=== PATIENT | female | born 1930 | race Caucasian/White ===

== ENCOUNTER 2016-12-28 08:59 | Emergency (ER) | payer BC, MEDICARE, OTHER ==
[~2016-12-28] VITALS: Ht 170.2 cm; Wt 59.1 kg
[~2016-12-28 08:59] MED LIST: Z.0.NO CURRENT MEDS
[2016-12-28 09:01] VITALS: BP 161/75; PULSE 68; RESP 16; TEMP 97.5; O2SAT 98
[2016-12-28] MEDS ORDERED: TETANUS/DIPHTHERIA TOXOID ADULT 0.5 ML VIAL IM ONE (09:30)
[2016-12-28] MEDS ORDERED: BACI500O9 TOPICAL (09:37)
--- NOTE | 2016-12-28 09:37 | PD ---
HPI Chief Complaint: Fall Time Seen by Provider: 09:22 Travel History International Travel<30 days: No Contact w/Intl Traveler<30days: No Traveled to known affect area: No History of Present Illness HPI 86-year-old female came to the emergency room with history of slip and fall. 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 She landed on her hand and also bruised her upper lip. No loss of consciousness. On her right palm and right knee the skin is scraped and bleeding. Patient is not on any blood thinners. This happened 5- 10 minutes prior to coming to the ER. Patient is awake and answering questions appropriately. She was brought in on a wheelchair. Says she is little shook up and unsteady but otherwise feeling okay. Patient has stable vital signs. Patient does not recall her last tetanus shot. However, she does not think it was in past 5 years. [facility] Past Medical History Narrative Medical List of her past medical history is reviewed from the nursing note. ?: Not Social History Tobacco Use: No Allergies-Medications (Allergen,Severity, Reaction): Coded Allergies: Penicillin (Verified Allergy, Severe, Anaphylaxis, 12/28/16) Comments List of her allergies reviewed from the nursing note. Reported Meds & Prescriptions Reported Meds & Active Scripts Active Bacitracin Topical 500 Unit/Gm Oint 1 Applic TOPICAL BID 7 Days Narrative Medication List of her home medications reviewed from the nursing note. Review of Systems Except as stated in HPI: all other systems reviewed are Neg Physical Exam Narrative GENERAL: Awake, alert, elderly, mild distress SKIN: Warm and dry. Superficial skin tear/abrasion of her right palm thenar aspect which is oozing blood, right knee skin tear. The bleeding has stopped. Left knee bruising HEAD: Atraumatic. Normocephalic. EYES: Pupils equal and round. No scleral icterus. No injection or drainage. ENT: No nasal bleeding or discharge. Mucous membranes pink and moist. Upper lip on the right side there is mucosal abrasion with some hematoma and swelling. No active bleeding. Denture underneath is intact NECK: Trachea midline. No JVD. CARDIOVASCULAR: Regular rate and rhythm. No murmur appreciated. RESPIRATORY: No accessory muscle use. Clear to auscultation. Breath sounds equal bilaterally. GASTROINTESTINAL: Abdomen soft, non-tender, nondistended. Hepatic and splenic margins not palpable. MUSCULOSKELETAL: No obvious deformities. No clubbing. No cyanosis. No edema. NEUROLOGICAL: Awake and alert. No obvious cranial nerve deficits. Motor grossly within normal limits. Normal speech. PSYCHIATRIC: Appropriate mood and affect; insight and judgment normal. Data Data Last Documented VS Vital Signs Date Time Temp Pulse Resp B/P Pulse Ox O2 Delivery O2 Flow Rate FiO2 12/28/16 09:01 97.5 68 16 161/75 98 Orders Tetanus/Diphtheria Tox Adult (Tetanus/Di (12/28/16 09:30) Wound Care (12/28/16 09:23) Acetaminophen (Tylenol) (12/28/16 09:45) MDM Medical Decision Making Medical Screen Exam Complete: Yes Emergency Medical Condition: Yes Medical Record Reviewed: Yes Differential Diagnosis Fall, abrasions, contusions Narrative Course 9:34 AM patient will get a tetanus shot. The wound will be cleaned and wrapped with non-adhesive dressing and triple antibiotic ointment. There is full range of motion at all the joints. She is awake, alert. I will not do any imaging study at this point. She will made to the ambulated before I will discharge her. Procedures EKG Prior to Arrival: No Diagnosis Primary Impression: Slipping, tripping and stumbling without falling due to stepping from one level to another, initial encounter Additional Impressions: Abrasion hand Skin tear of right lower leg without complication Qualified Code: S81.811A - Skin tear of right lower leg without complication, initial encounter Contusion of lip, initial encounter Referrals: Primary Care Physician 2 days Additional Instructions: Please return to the ER if the condition worsens or any other new concerns. Take Tylenol for pain. Expect the pain to worsen as the day progresses as well as tomorrow. Warm shower or bath along with Tylenol should help. Follow-up with your primary care. Dressing change every day with the antibiotic ointment. Med/Other Pt SpecificInfo: Prescription(s) given Scripts Bacitracin Topical 500 Unit/Gm Oint1 Applic TOPICAL BID 7 Days Ref 0 Prov:Natali Jackson MD 12/28/16 Disposition: 01 DISCHARGE HOME Condition: Stable Natali Jackson MD Dec 28, 2016 09:37
[2016-12-28] MEDS ORDERED: ACETAMINOPHEN 325 MG TAB PO ONE (09:45)
== END 2016-12-28 10:46 | disposition home or self-care (01) ==
LOC: NEPE 08:59
DX: S60.511A Abrasion of right hand, initial encounter (principal); S81.811A Laceration without foreign body, right lower leg, initial encounter; S00.531A Contusion of lip, initial encounter; W01.0XXA Fall on same level from slipping, tripping and stumbling without subsequent striking against object, initial encounter; Y92.239 Unspecified place in hospital as the place of occurrence of the external cause; Y99.2 Volunteer activity
CPT/HCPCS: 90471; 90714